=== PATIENT | female | born 1990 | race African-American/Black ===

== ENCOUNTER 2016-07-21 19:38 | Emergency (ER) | payer OTHER ==
[2016-07-21 19:40] VITALS: BP 134/76; PULSE 78; PULSE 98; RESP 14; TEMP 98.2; O2SAT 78; O2SAT 98
--- NOTE | 2016-07-21 20:22 | PD ---
HPI Chief Complaint: Abdominal Pain Time Seen by Provider: 20:22 Travel History International Travel<30 days: No Contact w/Intl Traveler<30days: No Traveled to known affect area: No History of Present Illness HPI 25-year-old female presents to the emergency department for evaluation of abdominal pain and back pain for 1 day. States that she has an intermittent sharp epigastric and lower abdominal pain that began this afternoon. States that she also developed some aching in her mid to lower back. States that she went to her school clinic where they did a urinalysis and she was told she had blood in her urine and to come to the emergency department. She denies any john hematuria, burning with urination, painful urination, urinary frequency, fever, chills, nausea, vomiting, diarrhea, constipation, bloody stool, vaginal discharge. Last menstrual period was in April 2016, denies , states she took a test today that was negative. Admits to history of irregular menses and uterine fibroids. Denies any prior abdominal surgeries. No other complaints. [facility]LY [facility] Past Medical History Medical History: Denies Significant Hx Diminished Hearing: No ?: Unknown LMP: 05/18/16 : 0 Past Surgical History Surgical History: No Previous Surgery Social History Alcohol Use: Yes (OCCASIONAL) Tobacco Use: No Substance Use: No Allergies-Medications (Allergen,Severity, Reaction): Coded Allergies: No Known Allergies (Unverified , 07/21/16) Reported Meds & Prescriptions Reported Meds & Active Scripts Active No Active Prescriptions or Reported Medications Review of Systems Except as stated in HPI: all other systems reviewed are Neg Physical Exam Narrative GENERAL: Well-nourished and well-developed pleasant female patient in no acute distress who is nontoxic appearing. SKIN: Warm and dry. HEAD: Normocephalic and atraumatic. EYES: No injection, drainage, or hyphema noted. PERRLA. EOMI. ENT: No nasal drainage noted. Oropharynx is clear. NECK: Supple and the trachea is midline. CARDIOVASCULAR: Regular rate and rhythm. RESPIRATORY: Breath sounds are equal bilaterally with no accessory muscle use, wheezing, rhonchi, or crackles. GASTROINTESTINAL: Mild epigastric and lower abdominal tenderness to palpation, worse in epigastric. No rebound tenderness or guarding. Negative Leonardo sign. Negative McBurney's point. Abdomen is soft and nondistended. MUSCULOSKELETAL: No obvious deformities, swelling, cyanosis, or ecchymosis is present throughout the upper and lower extremities. Patient has full range of motion without any signs of neurovascular compromise. BACK: Negative CVA tenderness. NEUROLOGICAL: Awake, alert, and oriented. Normal speech and gait. Cranial nerves are grossly intact. Data Data Last Documented VS Vital Signs Date Time Temp Pulse Resp B/P Pulse Ox O2 Delivery O2 Flow Rate FiO2 07/21/16 19:40 98.2 98 14 134/76 98 Room Air Orders Complete Blood Count With Diff (07/21/16 20:22) Comprehensive Metabolic Panel (07/21/16 20:22) Lipase (07/21/16 20:22) Urinalysis - C+S If Indicated (07/21/16 20:22) Iv Access Insert/Monitor (07/21/16 20:22) Ecg Monitoring (07/21/16 20:22) Oximetry (07/21/16 20:22) Sodium Chloride 0.9% Flush (Ns Flush) (07/21/16 20:30) Ed Urine Pregnancytest Poc (07/21/16 20:22) Al-Mag Hy-Si 40-40-4 Mg/Ml Liq (Mag-Al P (07/21/16 21:15) Lidocaine 2% Viscous (Xylocaine 2% Visco (07/21/16 21:15) Labs Laboratory Tests Test 07/21/16 20:35 White Blood Count 7.6 TH/MM3 Red Blood Count 5.88 MIL/MM3 Hemoglobin 10.7 GM/DL Hematocrit 33.0 % Mean Corpuscular Volume 56.2 FL Mean Corpuscular Hemoglobin 18.2 PG Mean Corpuscular Hemoglobin 32.4 % Concent Red Cell Distribution Width 17.6 % Platelet Count 313 TH/MM3 Mean Platelet Volume 9.0 FL Neutrophils (%) (Auto) 61.1 % Lymphocytes (%) (Auto) 29.5 % Monocytes (%) (Auto) 8.3 % Eosinophils (%) (Auto) 0.9 % Basophils (%) (Auto) 0.2 % Neutrophils # (Auto) 4.7 TH/MM3 Lymphocytes # (Auto) 2.2 TH/MM3 Monocytes # (Auto) 0.6 TH/MM3 Eosinophils # (Auto) 0.1 TH/MM3 Basophils # (Auto) 0.0 TH/MM3 CBC Comment AUTO DIFF Urine Color LIGHT-YELLOW Urine Turbidity CLEAR Urine pH 6.0 Urine Specific [place] 1.016 Urine Protein NEG mg/dL Urine Glucose (UA) NEG mg/dL Urine Ketones NEG mg/dL Urine Occult Blood NEG Urine Nitrite NEG Urine Bilirubin NEG Urine Urobilinogen LESS THAN 2.0 MG/DL Urine Leukocyte Esterase NEG Urine WBC 1 /hpf Urine Squamous Epithelial 1 /hpf Cells Urine Bacteria RARE /hpf Urine Mucus FEW /lpf Microscopic Urinalysis Comment CULT NOT INDICATED Sodium Level 138 MEQ/L Potassium Level 3.6 MEQ/L Chloride Level 104 MEQ/L Carbon Dioxide Level 27.2 MEQ/L Anion Gap 7 MEQ/L Blood Urea Nitrogen 12 MG/DL Creatinine 0.86 MG/DL Estimat Glomerular Filtration 99 ML/MIN Rate Random Glucose 83 MG/DL Calcium Level 8.8 MG/DL Total Bilirubin 0.2 MG/DL Aspartate Amino Transf 18 U/L (AST/SGOT) Alanine Aminotransferase 22 U/L (ALT/SGPT) Alkaline Phosphatase 72 U/L Total Protein 8.4 GM/DL Albumin 4.0 GM/DL Lipase 143 U/L [facility] Medical Decision Making Medical Screen Exam Complete: Yes Emergency Medical Condition: Yes Differential Diagnosis Cystitis versus pyelonephritis versus gastritis versus colitis Narrative Course 25-year-old female presents to the emergency department for evaluation of abdominal pain and back pain for 1 day. Patient is afebrile, vital signs are stable. She does have some epigastric and lower abdominal tenderness to palpation but overall abdominal examination is benign. IV access is obtained, labs been drawn and sent. She is administered GI cocktail. CBC shows mild anemia with a hemoglobin of 10.7, hematocrit 33.0, otherwise unremarkable. CMP is unremarkable. Lipase is normal. Urinalysis shows rare bacteria and few mucus. Patient has remained stable and without complaint while here in the emergency department. No signs of urinary tract infection. Labs are all reassuring. This is likely gastritis. Patient will be prescribed Zantac. Instructed to follow-up with her PCP. I discussed the case with my attending physician Dr. Sosa who is aware of the patients history, physical examination findings, and treatment plan. Diagnosis Primary Impression: Gastritis Qualified Code: K29.70 - Gastritis without bleeding, unspecified chronicity, unspecified gastritis type Patient Instructions: Gastritis (ED), General Instructions Additional Instructions: Take medication as prescribed with food and a full glass of water. Follow-up with your Primary Care Physician. Return to the ED for any acute worsening of symptoms. Med/Other Pt SpecificInfo: Prescription(s) given Scripts No Active Prescriptions or Reported Meds Disposition: 01 DISCHARGE HOME Condition: Stable Ca Rey Jul 21, 2016 20:22
[2016-07-21] MEDS ORDERED: SODIUM CHLORIDE 0.9% FLUSH 5 ML FLUSH IVF PRN (20:30)
[2016-07-21 21:08] LABS: AUTOMATED NEUTROPHIL # 4.7 TH/MM3 (1.8-7.7); BASOPHIL % 0.2 % (0.0-2.0); EOSINOPHIL # 0.1 TH/MM3 (0-0.4); EOSINOPHIL % 0.9 % (0.0-4.0); LYMPH % 29.5 % (9.0-44.0); LYMPHOCYTE # 2.2 TH/MM3 (1.0-4.8); MEAN CELL VOLUME 56.2 FL (80.0-100.0); MEAN CORPUSCULAR HEMOGLOBIN 18.2 PG (27.0-34.0); MEAN CORPUSCULAR HGB CONC 32.4 % (32.0-36.0); MONO % 8.3 % (0.0-8.0); NEUT % 61.1 % (16.0-70.0); PLATELET COUNT 313 TH/MM3 (150-450); RED BLOOD COUNT 5.88 MIL/MM3 (4.00-5.30); RED CELL DISTRIBUTION WIDTH 17.6 % (11.6-17.2); WHITE BLOOD COUNT 7.6 TH/MM3 (4.0-11.0)
[2016-07-21 21:09] LABS: HEMO FLAGS AUTO DIFF
[2016-07-21] MEDS ORDERED: LIDOCAINE VISCOUS 2% SOLN 15 ML UDC PO ONE (21:15)
[2016-07-21] MEDS ORDERED: ALUMINUM/MAGNESIUM/SIMETH 30 ML CUP PO ONE (21:15)
[2016-07-21 21:21] LABS: BACTERIA, URINE RARE /hpf; BLOOD, URINE NEG (NEG); COMMENT (UR) CULT NOT INDICATED; CULTURE IF INDICATED CULT NOT INDICATED; GLUCOSE,URINE NEG (NEG); KETONE, URINE NEG (NEG); MUCUS URINE FEW /lpf (OCC); NITRITE,URINE NEG (NEG); SQUAMOUS EPITHELIAL CELL URINE 1 /hpf (0-5); URINE COLOR LIGHT-YELLOW (YELLW/STRAW)
[2016-07-21 21:31] LABS: ANION GAP 7 MEQ/L (5-15); AST (GOT) 18 U/L (15-37); BICARBONATE 27.2 MEQ/L (21.0-32.0); BLOOD UREA NITROGEN 12 MG/DL (7-18); CHLORIDE 104 MEQ/L (98-107); GLOMERULAR FILTRATION RATE 99 ML/MIN (>89); POTASSIUM 3.6 MEQ/L (3.5-5.1); SODIUM (NA) 138 MEQ/L (136-145)
[2016-07-21 21:34] LABS: ALKALINE PHOSPHATASE 72 U/L (45-117); ALT (GPT) 22 U/L (10-53); TOTAL BILIRUBIN ADULT 0.2 MG/DL (0.2-1.0)
[2016-07-21] MEDS ORDERED: ZANT150T2 PO (21:41)
--- NOTE | 2016-07-21 21:44 | PD ---
Data Data Last Documented VS Vital Signs Date Time Temp Pulse Resp B/P Pulse Ox O2 Delivery O2 Flow Rate FiO2 07/21/16 19:40 98.2 98 14 134/76 98 Room Air Orders Complete Blood Count With Diff (07/21/16 20:22) Comprehensive Metabolic Panel (07/21/16 20:22) Lipase (07/21/16 20:22) Urinalysis - C+S If Indicated (07/21/16 20:22) Iv Access Insert/Monitor (07/21/16 20:22) Ecg Monitoring (07/21/16 20:22) Oximetry (07/21/16 20:22) Sodium Chloride 0.9% Flush (Ns Flush) (07/21/16 20:30) Ed Urine Pregnancytest Poc (07/21/16 20:22) Al-Mag Hy-Si 40-40-4 Mg/Ml Liq (Mag-Al P (07/21/16 21:15) Lidocaine 2% Viscous (Xylocaine 2% Visco (07/21/16 21:15) Labs Laboratory Tests Test 07/21/16 20:35 White Blood Count 7.6 TH/MM3 Red Blood Count 5.88 MIL/MM3 Hemoglobin 10.7 GM/DL Hematocrit 33.0 % Mean Corpuscular Volume 56.2 FL Mean Corpuscular Hemoglobin 18.2 PG Mean Corpuscular Hemoglobin 32.4 % Concent Red Cell Distribution Width 17.6 % Platelet Count 313 TH/MM3 Mean Platelet Volume 9.0 FL Neutrophils (%) (Auto) 61.1 % Lymphocytes (%) (Auto) 29.5 % Monocytes (%) (Auto) 8.3 % Eosinophils (%) (Auto) 0.9 % Basophils (%) (Auto) 0.2 % Neutrophils # (Auto) 4.7 TH/MM3 Lymphocytes # (Auto) 2.2 TH/MM3 Monocytes # (Auto) 0.6 TH/MM3 Eosinophils # (Auto) 0.1 TH/MM3 Basophils # (Auto) 0.0 TH/MM3 CBC Comment AUTO DIFF Urine Color LIGHT-YELLOW Urine Turbidity CLEAR Urine pH 6.0 Urine Specific [place] 1.016 Urine Protein NEG mg/dL Urine Glucose (UA) NEG mg/dL Urine Ketones NEG mg/dL Urine Occult Blood NEG Urine Nitrite NEG Urine Bilirubin NEG Urine Urobilinogen LESS THAN 2.0 MG/DL Urine Leukocyte Esterase NEG Urine WBC 1 /hpf Urine Squamous Epithelial 1 /hpf Cells Urine Bacteria RARE /hpf Urine Mucus FEW /lpf Microscopic Urinalysis Comment CULT NOT INDICATED Sodium Level 138 MEQ/L Potassium Level 3.6 MEQ/L Chloride Level 104 MEQ/L Carbon Dioxide Level 27.2 MEQ/L Anion Gap 7 MEQ/L Blood Urea Nitrogen 12 MG/DL Creatinine 0.86 MG/DL Estimat Glomerular Filtration 99 ML/MIN Rate Random Glucose 83 MG/DL Calcium Level 8.8 MG/DL Total Bilirubin 0.2 MG/DL Aspartate Amino Transf 18 U/L (AST/SGOT) Alanine Aminotransferase 22 U/L (ALT/SGPT) Alkaline Phosphatase 72 U/L Total Protein 8.4 GM/DL Albumin 4.0 GM/DL Lipase 143 U/L [facility] Supervised Visit with JOHN: Yes Narrative Course The history, exam, and medical decision-making in the associated midlevel provider note were completed with my assistance. I reviewed and agree with the findings presented. I attest that I had a [id number] encounter with the patient on the same day, and personally performed and documented my assessment and findings in the medical record. *My assessment and Findings: This is a 25 year old female who presents to the emergency department with abdominal pain, primarily focused in her epigastrium that started this morning. She is very well-appearing on exam. Labs are obtained which are reassuring. She is tender to palpation in the epigastrium with no rebound or guarding. She is otherwise healthy. I suspect she has gastritis or peptic ulcer disease. Patient was given a GI cocktail the emergency department and will be discharged on an H2 juan carlos. Diagnosis Primary Impression: Gastritis Qualified Code: K29.70 - Gastritis without bleeding, unspecified chronicity, unspecified gastritis type Patient Instructions: General Instructions, Gastritis (ED) Additional Instruction: Take medication as prescribed with food and a full glass of water. Follow-up with your Primary Care Physician. Return to the ED for any acute worsening of symptoms. Scripts Ranitidine (Zantac)150 Mg [id number] Mg PO BID 14 Days Ref 0 Prov:Kathy Sosa MD 07/21/16 Disposition: 01 DISCHARGE HOME Condition: Stable Kathy Sosa MD Jul 21, 2016 21:44
[2016-07-21 21:58] LABS: SCAN/DIFF AUTO DIFF CONFIRMED
[2016-07-21 21:59] LABS: ACANTHOCYTES OCC (NORMAL); PLATELET ESTIMATE SMEAR NORMAL (NORMAL); TARGET CELLS 1+ (NORMAL)
[2016-07-21 22:00] LABS: PLATELET MORPHOLOGY ENLARGED (NORMAL)
== END 2016-07-21 22:17 | disposition home or self-care (01) ==
LOC: NEPC 19:38
DX: K29.70 Gastritis, unspecified, without bleeding (principal); M54.9 Dorsalgia, unspecified
CPT/HCPCS: 80053; 81001; 83690; 84703; 85025; 99284

== ENCOUNTER 2016-10-06 10:10 | Emergency (ER) | payer OTHER ==
[~2016-10-06] VITALS: Ht 160 cm; Wt 91.0 kg
[~2016-10-06 10:10] MED LIST: ZANT150T2 PO
[2016-10-06 10:11] VITALS: BP 133/63; PULSE 69; RESP 16; TEMP 98.7; O2SAT 100
--- NOTE | 2016-10-06 12:12 | PD ---
HPI Chief Complaint: ENT Complaint Time Seen by Provider: 12:00 Travel History International Travel<30 days: No Contact w/Intl Traveler<30days: No Traveled to known affect area: No History of Present Illness HPI Patient is a 26-year-old female presented to the emergency for evaluation of a loss of her voice as well as a cough. Patient states she is coughing up clear sputum. She states her symptoms started Tuesday and she lost her voice on Tuesday. She denies any fever, chills, nausea, vomiting, headache, shortness of breath, throat pain, ear pain, nasal congestion. PFSH Past Medical History Medical History: Denies Significant Hx Diminished Hearing: No ?: Not LMP: NOW : 0 Social History Alcohol Use: Yes (OCCASIONAL) Tobacco Use: No Substance Use: No Allergies-Medications (Allergen,Severity, Reaction): Coded Allergies: No Known Allergies (Unverified , 10/06/16) Reported Meds & Prescriptions Reported Meds & Active Scripts Active Zantac (Ranitidine HCl) 150 Mg Tab 150 Mg PO BID 14 Days Review of Systems Except as stated in HPI: all other systems reviewed are Neg General / Constitutional: No: Fever, Chills HENT: Positive: Other (loss of voice), No: Headaches, Sore Throat, Rhinitis, Congestion, Neck Pain Cardiovascular: No: Chest Pain or Discomfort Respiratory: Positive: Cough, No: Shortness of Breath, Wheezing Gastrointestinal: No: Nausea, Vomiting, Abdominal Pain Musculoskeletal: No: Myalgias Physical Exam Narrative GENERAL: Well-nourished, well-developed patient. SKIN: Focused skin assessment warm/dry. HEAD: Normocephalic. ENT: Mucosa pink and moist. No erythema or exudates. No uvular edema. No uvular , palatal, or tonsillar deviation. Airway patent. Nasal turbinates appear normal without nasal blood, purulent drainage or septal hematoma. EYES: No scleral icterus. No injection or drainage. NECK: Supple, trachea midline. No JVD or lymphadenopathy. CARDIOVASCULAR: Regular rate and rhythm without murmurs, gallops, or rubs. RESPIRATORY: Breath sounds equal bilaterally. No accessory muscle use. GASTROINTESTINAL: Abdomen soft, non-tender, nondistended. MUSCULOSKELETAL: No cyanosis, or edema. BACK: Nontender without obvious deformity. No CVA tenderness. Data Data Last Documented VS Vital Signs Date Time Temp Pulse Resp B/P Pulse Ox O2 Delivery O2 Flow Rate FiO2 10/06/16 10:11 98.7 69 16 133/63 100 Room Air MDM Medical Decision Making Medical Screen Exam Complete: Yes Emergency Medical Condition: Yes Interpretation(s) Vital Signs Date Time Temp Pulse Resp B/P Pulse Ox O2 Delivery O2 Flow Rate FiO2 10/06/16 10:11 98.7 69 16 133/63 100 Room Air Differential Diagnosis Viral syndrome versus bronchitis versus laryngitis versus pharyngitis Narrative Course Patient is a 26-year-old female presenting to the emergency department for evaluation of vocal changes. Patient states her symptoms started Tuesday with a cough with clear sputum. Physical examination is unremarkable, discussed with patient that laryngitis is usually viral and is self-limiting. Patient was encouraged to continue symptom management. She was encouraged to avoid straining her voice. She was encouraged to return to emergency department for any new or worsening symptoms or follow up with her primary doctor. Patient verbalized understanding of these instructions. Patient is stable for discharge. Diagnosis Primary Impression: Laryngitis Referrals: Primary Care Physician Patient Instructions: General Instructions, Laryngitis (ED) Additional Instructions: Follow-up with your primary doctor Return to emergency department for any new or worsening symptoms Continue symptom management Med/Other Pt SpecificInfo: No Change to Meds Disposition: 01 DISCHARGE HOME Condition: Stable Monika Kelly Oct 06, 2016 12:12
== END 2016-10-06 12:54 | disposition home or self-care (01) ==
LOC: NEPK 10:10
DX: J04.0 Acute laryngitis (principal)
CPT/HCPCS: 99282

== ENCOUNTER 2017-11-11 11:08 | Emergency (ER) | END 2017-11-11 15:09 | disposition home or self-care (01) | DX: S50.822A Blister (nonthermal) of left forearm, initial encounter (principal); L03.114 Cellulitis of left upper limb; X58.XXXA Exposure to other specified factors, initial encounter ==